=== PATIENT | male | born 1980 | race Two or more races ===

== ENCOUNTER 2020-07-05 15:04 | Emergency (ER) | payer MEDICAID ==
[~2020-07-05] VITALS: Ht 162.6 cm; Wt 63.5 kg
--- NOTE | 2020-07-05 15:09 | NUR ---
PT BIBA FOR LOW BLOOD PRESSURE FROM CLINIC. PT AAOX4, VSS,RESPIRATIONS EVEN AND UNLABORED ON RA W/ NAD NOTED. PT CONNECTED TO THE MONITOR AND POX
--- NOTE | 2020-07-05 15:10 | NUR ---
PT HAS NO MEDICAL COMPLAINTS AT THIS TIME.
[2020-07-05 15:57] VITALS: BP 131/77
--- NOTE | 2020-07-05 15:57 | NUR ---
D/C Patient discharged to home in stable condition. Written and verbal after care instructions given. Patient verbalizes understanding of instruction.
--- NOTE | 2020-07-05 15:59 | NUR ---
Patient discharged to home in stable condition. Written and verbal after care instructions given. Patient verbalizes understanding of instruction.
== END 2020-07-05 15:58 | disposition home or self-care (01) ==
LOC: ER 15:15
DX: I95.9 Hypotension, unspecified (principal); R94.31 Abnormal electrocardiogram [ECG] [EKG]